=== PATIENT | female | born 1950 | race Asian ===

== ENCOUNTER 2017-01-06 15:37 | Outpatient (CLI) | payer BC, OTHER ==
[~2017-01-06 15:37] MED LIST: ACET-689 PO; AMLODIPINE5 MG PO; CHERATUSSIN PO; FLONASE0.05 %; LISI10TA11 PO; METOPROLOL50 MG PO; VENTOLIN HFA; ZOCOR80 MG PO
[2017-01-06 15:49] LABS: PLATELET COUNT 198 K/uL (152-353)
== END 2017-01-06 23:50 | disposition home or self-care (01) ==
LOC: LAB 15:37
PROVIDERS: Internal Medicine Cardiovascular Disease
DX: Z79.899 Other long term (current) drug therapy (principal); Z01.810 Encounter for preprocedural cardiovascular examination; Z51.81 Encounter for therapeutic drug level monitoring
CPT/HCPCS: 36415; 85027

== ENCOUNTER 2017-01-14 13:05 | Outpatient (CLI) | payer BC, OTHER | END 2017-01-14 22:52 | disposition home or self-care (01) | LOC: RAD 13:05 | DX: M25.461 Effusion, right knee (principal) ==

== ENCOUNTER 2017-01-27 17:10 | Outpatient (CLI) | payer BC, OTHER | END 2017-01-27 19:35 | disposition home or self-care (01) | LOC: US 17:10 | DX: I80.9 Phlebitis and thrombophlebitis of unspecified site (principal) ==

== ENCOUNTER 2017-02-02 10:26 | Outpatient (CLI) | payer BC, OTHER | END 2017-02-02 19:21 | disposition home or self-care (01) | LOC: RESP 10:26 | DX: R06.00 Dyspnea, unspecified (principal) | CPT/HCPCS: 94664 ==

== ENCOUNTER 2017-02-12 13:28 | Outpatient (CLI) | payer BC, OTHER | END 2017-02-12 19:50 | disposition home or self-care (01) | LOC: MRI 13:28 | DX: M25.461 Effusion, right knee (principal) ==

== ENCOUNTER 2017-07-03 09:35 | Outpatient (CLI) | payer BC, OTHER | END 2017-07-03 11:00 | disposition home or self-care (01) | LOC: MAMMO 09:35 | DX: Z12.31 Encounter for screening mammogram for malignant neoplasm of breast (principal); Z13.820 Encounter for screening for osteoporosis; M85.88 Other specified disorders of bone density and structure, other site | CPT/HCPCS: G0202-TC ==

== ENCOUNTER 2017-07-17 16:01 | Outpatient (CLI) | payer BC, OTHER ==
[2017-07-17 16:20] LABS: PLATELET COUNT 213 K/uL (152-353)
[2017-07-17 16:37] LABS: POTASSIUM 3.7 mmol/L (3.6-5.2); SODIUM 142 mmol/L (136-145)
== END 2017-07-17 17:05 | disposition home or self-care (01) ==
LOC: LAB 16:01
PROVIDERS: Family Medicine
DX: R10.11 Right upper quadrant pain (principal)
CPT/HCPCS: 80053; 82150; 82550; 83690; 84484; 85027

== ENCOUNTER 2017-08-17 13:08 | Observation (INO) | payer BC, OTHER ==
[~2017-08-17] VITALS: Ht 167.6 cm; Wt 82.7 kg
[2017-08-17 14:22] VITALS: BP 163/81; TEMP 97.7; Ht 167.6 cm; Wt 82.7 kg
[2017-08-17 14:30] LABS: PLATELET COUNT 208 K/uL (152-353)
[2017-08-17] MEDS ORDERED: AMLO2.5T PO (14:37)
[2017-08-17] MEDS ORDERED: LIPITOR80 MG PO (14:38)
[2017-08-17] MEDS ORDERED: LISI20TA11 PO (14:38)
[2017-08-17] MEDS ORDERED: PANTPAK PO (14:38)
[2017-08-17] MEDS ORDERED: METO50TA27 PO (14:38)
[2017-08-17 14:42] LABS: POTASSIUM 3.4 mmol/L (3.6-5.2); SODIUM 140 mmol/L (136-145)
[2017-08-17 14:52] LABS: PARTIAL THROMBOPLASTIN TIME 25.9 SECONDS (24.5-33.6)
[2017-08-17 15:54] VITALS: BP 174/79; TEMP 97.9
[2017-08-17] MEDS ORDERED: CLOP75TA2 PO (18:17)
[2017-08-17] MEDS ORDERED: ASPI325T40 PO (18:17)
[2017-08-17 20:00] VITALS: BP 136/80; TEMP 98.3
[2017-08-18] VITALS: BP 171/79; TEMP 98.2
[2017-08-18 04:00] VITALS: BP 159/77; TEMP 98.2
[2017-08-18 06:56] LABS: PLATELET COUNT 202 K/uL (152-353)
[2017-08-18 07:51] LABS: POTASSIUM 4.7 mmol/L (3.6-5.2); SODIUM 141 mmol/L (136-145)
[2017-08-18 08:00] VITALS: BP 158/82; TEMP 98.4
--- NOTE | 2017-08-18 09:52 | NUR ---
DC INSTRUCTIONS GIVEN TO PT. PT INSTRUCTED TO FOLLOW UP WITH DR DURÁN SCHEDULED AND DR CONDON IN 1 WEEK. IV DC'D WITH CANNULA INTACT AND SITE CARE PROVIDED.
--- NOTE | 2017-08-18 09:55 | NUR ---
PT LEFT VIA AMBULATORY REQUESTED. NAD NOTED.
== END 2017-08-18 09:55 | disposition home or self-care (01) ==
LOC: MED/SURG 13:08
PROVIDERS: ADMIT Family Medicine
DX: R07.89 Other chest pain (principal); R68.84 Jaw pain; R94.31 Abnormal electrocardiogram [ECG] [EKG]; I10 Essential (primary) hypertension; E78.4 Other hyperlipidemia
CPT/HCPCS: 36415; 80053; 82550; 82553; 83735; 84484; 85027; 85610; 85730; 93005; 94760; 96365; 96366; 96372; 99220; G0378; G0379; J1650

== ENCOUNTER 2017-10-26 10:15 | Outpatient (CLI) | payer BC, OTHER ==
[~2017-10-26 10:15] MED LIST changes: +AMLO2.5T PO; +ASPI325T40 PO; +CLOP75TA2 PO; +LIPITOR80 MG PO; +LISI20TA11 PO; +METO50TA27 PO; +PANTPAK PO
== END 2017-10-26 19:16 | disposition home or self-care (01) ==
LOC: RAD 10:15
DX: R59.0 Localized enlarged lymph nodes (principal)

== ENCOUNTER 2017-10-27 13:36 | Outpatient (CLI) | payer BC, OTHER | END 2017-10-27 21:42 | disposition home or self-care (01) | LOC: CT 13:36 | DX: R10.2 Pelvic and perineal pain (principal) ==

== ENCOUNTER 2019-08-17 11:13 | Outpatient (CLI) | payer OTHER | END 2019-08-17 23:44 | disposition home or self-care (01) | LOC: RAD 11:13 | DX: M54.12 Radiculopathy, cervical region (principal) ==

== ENCOUNTER 2020-04-17 11:18 | Outpatient (CLI) | payer OTHER | END 2020-04-17 19:11 | disposition home or self-care (01) | LOC: LAB 11:18 → RAD 11:18 → LAB 19:11 | DX: R06.09 Other forms of dyspnea (principal) | CPT/HCPCS: 83880; 84484 ==

== ENCOUNTER 2020-08-15 10:28 | Outpatient (CLI) | payer OTHER | END 2020-08-15 19:06 | disposition home or self-care (01) | LOC: RAD 10:28 | DX: M54.17 Radiculopathy, lumbosacral region (principal) ==

== ENCOUNTER 2020-09-10 10:35 | Outpatient (CLI) | payer OTHER | END 2020-09-10 20:29 | disposition home or self-care (01) | LOC: MAMMO 10:35 | DX: Z12.31 Encounter for screening mammogram for malignant neoplasm of breast (principal) ==

== ENCOUNTER 2020-11-30 18:05 | Emergency (ER) | payer OTHER ==
[~2020-11-30] VITALS: Ht 167.6 cm; Wt 78.9 kg
[2020-11-30 18:22] VITALS: TEMP 98.7
[2020-11-30 19:30] LABS: POTASSIUM 3.2 mmol/L (3.6-5.2); SODIUM 133 mmol/L (136-145)
[2020-11-30 19:39] LABS: PLATELET COUNT 213 K/uL (152-353)
[2020-11-30 20:50] VITALS: BP 162/92
== END 2020-11-30 20:50 | disposition home or self-care (01) ==
LOC: ED 18:22
PROVIDERS: Family Medicine
DX: F41.8 Other specified anxiety disorders (principal); Z63.4 Disappearance and death of family member; R07.89 Other chest pain
CPT/HCPCS: 80053; 82550; 84484; 85027; 93005; 99283

== ENCOUNTER 2021-02-26 10:28 | Outpatient (CLI) | payer OTHER | END 2021-02-26 21:09 | disposition home or self-care (01) | LOC: RAD 10:28 | PROVIDERS: ATTEND Nurse Practitioner Family | DX: M25.511 Pain in right shoulder (principal) ==

== ENCOUNTER 2021-03-08 10:38 | Outpatient (CLI) | payer OTHER ==
[2021-03-08 10:57] LABS: PLATELET COUNT 222 K/uL (152-353)
[2021-03-08 11:21] LABS: POTASSIUM 3.8 mmol/L (3.6-5.2)
== END 2021-03-08 20:54 | disposition home or self-care (01) ==
LOC: LABW 10:38
PROVIDERS: ATTEND Nurse Practitioner Family
DX: E87.0 Hyperosmolality and hypernatremia (principal)
CPT/HCPCS: 36415; 80053; 85027

== ENCOUNTER 2021-07-19 21:55 | Emergency (ER) | payer OTHER ==
[~2021-07-19] VITALS: Ht 167.6 cm; Wt 79.8 kg
[2021-07-19 23:44] VITALS: BP 122/78; TEMP 98.8
== END 2021-07-19 23:44 | disposition home or self-care (01) ==
LOC: ED 21:55
DX: R11.2 Nausea with vomiting, unspecified (principal); Z86.16 Personal history of COVID-19
CPT/HCPCS: 99282

== ENCOUNTER 2021-09-13 10:28 | Outpatient (CLI) | payer OTHER | END 2021-09-13 21:02 | disposition home or self-care (01) | LOC: MAMMO 10:28 | PROVIDERS: ATTEND Family Medicine | DX: Z12.31 Encounter for screening mammogram for malignant neoplasm of breast (principal) ==

== ENCOUNTER → 2021-10-28 | Outpatient (CLI) | payer OTHER | LOC: RAD 09:30 | PROVIDERS: ATTEND Family Medicine | DX: M81.0 Age-related osteoporosis without current pathological fracture (principal) ==

== ENCOUNTER 2022-05-20 00:28 | Emergency (ER) | payer OTHER ==
[~2022-05-20] VITALS: Ht 167.6 cm; Wt 81.2 kg
[2022-05-20 00:58] LABS: PLATELET COUNT 153 K/uL (152-353)
[2022-05-20 01:19] LABS: POTASSIUM 3.2 mmol/L (3.6-5.2)
[2022-05-20 01:30] LABS: PARTIAL THROMBOPLASTIN TIME 29.1 SECONDS (24.5-33.6)
[2022-05-20 03:57] VITALS: BP 166/81; TEMP 98
== END 2022-05-20 03:30 | disposition home or self-care (01) ==
LOC: ED 00:28
PROVIDERS: Emergency Medicine
DX: I20.8 Other forms of angina pectoris (principal); I10 Essential (primary) hypertension; R07.89 Other chest pain
CPT/HCPCS: 36415; 80053; 81002; 82550; 84484; 85027; 85610; 85730; 93005; 99284

== ENCOUNTER 2023-01-02 10:29 | Outpatient (CLI) | payer OTHER | END 2023-01-02 21:20 | disposition home or self-care (01) | LOC: MAMMO 10:29 | PROVIDERS: ATTEND Nurse Practitioner Primary Care | DX: Z12.31 Encounter for screening mammogram for malignant neoplasm of breast (principal) ==

== ENCOUNTER 2023-02-23 12:32 | Outpatient (CLI) | payer OTHER ==
[2023-02-23 13:21] LABS: PLATELET COUNT 213 K/uL (152-353)
[2023-02-23 13:35] LABS: POTASSIUM 3.7 mmol/L (3.6-5.2)
== END 2023-02-23 19:03 | disposition home or self-care (01) ==
LOC: RESP 12:32
PROVIDERS: ATTEND Nurse Practitioner Family
DX: R07.89 Other chest pain (principal)
CPT/HCPCS: 36415; 80053; 82150; 82550; 82553; 83690; 84484; 85027; 93005

== ENCOUNTER 2023-06-22 09:59 | Outpatient (CLI) | payer OTHER | END 2023-06-22 19:09 | disposition home or self-care (01) | LOC: RAD 09:59 | PROVIDERS: ATTEND Nurse Practitioner Family | DX: U07.1 COVID-19 (principal) ==